=== PATIENT | male | born 1970 | race Two or more races ===

== ENCOUNTER 2024-09-28 23:02 | Inpatient (IN) | payer OTHER ==
[~2024-09-28] VITALS: Ht 182.9 cm; Wt 113.9 kg
[2024-09-28] MEDS ORDERED: ONDANSETRON HCL/PF 4 MG/2 ML VIAL ONE (23:24)
[2024-09-28] MEDS ORDERED: MECLIZINE HCL 12.5 MG TABLET ONE (23:24)
[2024-09-28] MEDS: MECLIZINE HCL 12.5 MG TABLET PO ONE (23:28)
[2024-09-28] MEDS: ONDANSETRON HCL/PF 4 MG/2 ML VIAL IVP ONE (23:28)
[2024-09-28 23:30] LABS: BASOPHILS % (AUTO) 0.9 % (0.0-2.0); EOSINOPHILS # (AUTO) 0.1 K/uL (0.0-0.7); EOSINOPHILS % (AUTO) 2.4 % (0.0-6.0); HEMATOCRIT 42 % (39-51); HEMOGLOBIN 13.7 g/dL (13.5-17.5); LYMPHOCYTES # (AUTO) 2.4 K/uL (0.8-4.8); LYMPHOCYTES % (AUTO) 44.7 % (20.0-44.0); MEAN CORPUSCULAR HEMOGLOBIN 30 PG (26.0-33.0); MEAN CORPUSCULAR HGB CONC 33 g/dl (31.0-36.0); MEAN CORPUSCULAR VOLUME 92 fL (80-96); MONOCYTES # (AUTO) 0.5 K/uL (0.1-1.30); MONOCYTES % (AUTO) 9.5 % (2.0-12.0); NEUTROPHILS # (AUTO) 2.2 K/uL (1.8-8.9); NEUTROPHILS % (AUTO) 42.5 % (43.0-81.0); PLATELET COUNT (AUTO) 194 K/uL (150-450); RED BLOOD CELL COUNT(AUTO) 4.59 MIL/uL (4.5-6.0); RED CELL DISTRIBUTION WIDTH 14.2 % (11.5-15.0); WHITE BLOOD COUNT (AUTO) 5.3 K/uL (4.3-11.0)
[2024-09-28 23:41] LABS: INR 1.03 (0.91-1.10); PARTIAL THROMBOPLASTIN TIME 29.1 SEC (24.3-34.3); PROTHROMBIN TIME 10.9 SECS (9.2-11.1)
[2024-09-28] MEDS: IV NS 0.9% 1,000 ML BAG IV ONE (23:41)
[2024-09-28 23:43] LABS: CALCIUM, SERUM 8.6 mg/dL (8.5-10.1); CARBON DIOXIDE 28 mmol/L (21-32); CHLORIDE 107 mmol/L (98-107); CREATININE 1.7 mg/dL (0.6-1.3); GLUCOSE 115 mg/dL (74-106); SODIUM SERUM 144 mmol/L (136-145); UREA NITROGEN, BLOOD 18 mg/dL (7-18)
[2024-09-28 23:49] LABS: ALANINE AMINOTRANSFERASE 42 U/L (12-78); ALBUMIN 3.8 g/dL (3.4-5.0); ALKALINE PHOSPHATASE 54 U/L (46-116); ASPARTATE AMINOTRANSFERASE 28 U/L (15-37); BILIRUBIN,DIRECT 0.1 mg/dL (0.0-0.2); BILIRUBIN,TOTAL 0.5 mg/dL (0.2-1.0); TOTAL PROTEIN, SERUM 7.6 g/dL (6.4-8.2)
[2024-09-29] MEDS ORDERED: ENOXAPARIN SODIUM 60 MG/0.6 ML DISP.SYRIN SQ ONE (02:41)
[2024-09-29] MEDS: ENOXAPARIN SODIUM 120 MG/0.8 ML DISP.SYRIN SQ ONE (02:49)
[2024-09-29] MEDS ORDERED: Z GUARD REMEDY 4 OZ OINT TP PRN (03:00)
[2024-09-29] MEDS ORDERED: MAG HYDROX/AL HYDROX/SIMETH 30 ML UDC PO PRN (03:00)
[2024-09-29] MEDS ORDERED: ACETAMINOPHEN 325 MG TABLET PO PRN (03:00)
[2024-09-29] MEDS ORDERED: HYDROCODONE/APAP 5/325MG TABLET PO PRN (03:00)
[2024-09-29] MEDS ORDERED: ONDANSETRON HCL/PF 4 MG/2 ML VIAL IVP PRN (03:00)
[2024-09-29] MEDS ORDERED: MAGNESIUM HYDROXIDE 30 ML UDC PO PRN (03:00)
[2024-09-29] MEDS ORDERED: NITROGLYCERIN 0.4 MG/TAB BOTTLE SL PRN (03:00)
[2024-09-29] MEDS ORDERED: MORPHINE SULFATE INJ 2 MG/ML DISP.SYRIN IV PRN (03:00)
[2024-09-29] MEDS: PANTOPRAZOLE 40 MG TABLET.DR PO SCH (07:58)
[2024-09-29] MEDS ORDERED: PANTOPRAZOLE 40 MG TABLET.DR PO ONE (07:58)
[2024-09-29] MEDS ORDERED: METO-357 PO (08:21)
[2024-09-29] MEDS ORDERED: HYDR50CA5 PO (08:21)
[2024-09-29 08:22] LABS: CHOLESTEROL 206 mg/dL (<200); HDL CHOLESTEROL 56 mg/dL (40-60); LDL 141 mg/dL (0-99); TRIGLYCERIDES 93 mg/dL (30-150)
[2024-09-29] MEDS ORDERED: METOPROLOL SUCCINATE 50 MG TAB.SR.24H PO SCH (09:00)
[2024-09-29] MEDS ORDERED: hydrOXYzine PAMOATE 50 MG CAPSULE PO PRN (09:00)
[2024-09-29] MEDS ORDERED: hydrOXYzine PAMOATE 25 MG CAPSULE PO PRN (09:30)
[2024-09-29 09:35] VITALS: BP 131/90; TEMP 97.5; O2SAT 98
[2024-09-29] MEDS: CLOPIDOGREL BISULFATE 75 MG TABLET PO SCH (09:42)
[2024-09-29] MEDS: METOPROLOL SUCCINATE 50 MG TAB.SR.24H PO SCH (09:44)
[2024-09-29] MEDS: ATORVASTATIN 10 MG TABLET PO SCH (09:44)
[2024-09-29] MEDS: ENOXAPARIN SODIUM 120 MG/0.8 ML DISP.SYRIN SQ SCH (10:35)
[2024-09-29] MEDS ORDERED: IV NS 0.9% 250 ML IV ONE (10:53)
[2024-09-29] MEDS ORDERED: IOHEXOL-350 100 ML VIAL IV ONE (10:53)
[2024-09-29] MEDS: NITROGLYCERIN 0.4 MG/TAB BOTTLE SL ONE (11:22)
[2024-09-29] MEDS ORDERED: METOPROLOL TARTRATE INJ 5 MG/5 ML AMPUL IVP PRN (11:30)
[2024-09-29] MEDS: IV NS 0.9% 1,000 ML IV SCH (11:44)
[2024-09-29 16:00] VITALS: BP 106/67; TEMP 97.9; O2SAT 98
[2024-09-29 20:00] VITALS: BP 101/73; TEMP 97.3; O2SAT 97
[2024-09-29] MEDS: TEMAZEPAM 15 MG CAPSULE PO PRN (22:27)
[2024-09-30] VITALS: BP 111/73; TEMP 97.7; O2SAT 98
[2024-09-30 04:00] VITALS: BP 130/90; TEMP 97.7; O2SAT 99
[2024-09-30 06:28] LABS: BASOPHILS % (AUTO) 0.5 % (0.0-2.0); EOSINOPHILS # (AUTO) 0.1 K/uL (0.0-0.7); EOSINOPHILS % (AUTO) 3.1 % (0.0-6.0); HEMATOCRIT 42 % (39-51); HEMOGLOBIN 13.7 g/dL (13.5-17.5); LYMPHOCYTES # (AUTO) 1.8 K/uL (0.8-4.8); LYMPHOCYTES % (AUTO) 48.6 % (20.0-44.0); MEAN CORPUSCULAR HEMOGLOBIN 30 PG (26.0-33.0); MEAN CORPUSCULAR HGB CONC 33 g/dl (31.0-36.0); MEAN CORPUSCULAR VOLUME 92 fL (80-96); MONOCYTES # (AUTO) 0.3 K/uL (0.1-1.30); MONOCYTES % (AUTO) 9.1 % (2.0-12.0); NEUTROPHILS # (AUTO) 1.5 K/uL (1.8-8.9); NEUTROPHILS % (AUTO) 38.7 % (43.0-81.0); PLATELET COUNT (AUTO) 204 K/uL (150-450); RED BLOOD CELL COUNT(AUTO) 4.55 MIL/uL (4.5-6.0); RED CELL DISTRIBUTION WIDTH 14.3 % (11.5-15.0); WHITE BLOOD COUNT (AUTO) 3.8 K/uL (4.3-11.0)
[2024-09-30 06:56] LABS: THYROID STIMULATING HORMONE 1.73 uIU/mL (0.358-3.74)
[2024-09-30 06:57] LABS: ALBUMIN 3.4 g/dL (3.4-5.0); BILIRUBIN,TOTAL 0.4 mg/dL (0.2-1.0); CALCIUM, SERUM 8.8 mg/dL (8.5-10.1); CREATININE 1.6 mg/dL (0.6-1.3); MAGNESIUM 2.1 mg/dL (1.8-2.4); PHOSPHORUS 4.6 mg/dL (2.5-4.9); POTASSIUM 4.2 mmol/L (3.5-5.1); TOTAL PROTEIN, SERUM 7.1 g/dL (6.4-8.2)
[2024-09-30 07:09] LABS: CREATINE KINASE, TOTAL 311 U/L (39-308)
[2024-09-30] MEDS ORDERED: METO-358 PO (10:00)
[2024-09-30] MEDS ORDERED: ATOR40TA PO (10:00)
[2024-09-30] MEDS ORDERED: DOXA4TAB19 PO (10:00)
[2024-09-30] MEDS ORDERED: CLOP75TA15 PO (10:00)
[2024-09-30 10:06] LABS: FREE PSA 0.21 ng/mL (0.00-45); PROSTATE SPECIFIC ANTIGEN SCR 0.82 ng/mL (0.00-4.00)
[2024-09-30 11:50] VITALS: BP 146/89
[2024-09-30 12:28] LABS: APPEARANCE,URINE CLEAR (CLEAR); BILIRUBIN,URINE NEGATIVE (NEGATIVE); BLOOD, URINE NEGATIVE Ery/uL (NEGATIVE); COLOR,URINE YELLOW (YELLOW); CREATININE, URINE 108.6 MG/DL (30.0-125.0); KETONES,URINE NEGATIVE (NEGATIVE); LEUKOCYTE ESTERASE ,URINE NEGATIVE (NEGATIVE); NITRITE, URINE NEGATIVE (NEGATIVE); PROTEIN,URINE NEGATIVE (NEGATIVE); UGLUCOSE NEGATIVE (NEGATIVE); UROBILINOGEN,URINE 0.2 EU/dL (0.2)
[2024-09-30 15:43] LABS: EOSINOPHIL,URINE None Seen
[2024-09-30] MEDS ORDERED: DOXAZOSIN MESYLATE (4 MG) 4 MG TABLET PO SCH (22:00)
[2024-10-01] MEDS ORDERED: ATORVASTATIN 10 MG TABLET PO SCH (09:00)
[2024-10-03 14:10] LABS: *SPE ALBUMIN 3.3 g/dL (2.9-4.4); *SPE ALPHA-1-GLOBULIN 0.2 g/dL (0.0-0.4); *SPE ALPHA-2-GLOBULIN 0.4 g/dL (0.4-1.0); *SPE BETA GLOBULIN 1.1 g/dL (0.7-1.3); *SPE GLOBULIN, TOTAL 3.2 g/dL (2.2-3.9); *SPE M-SPIKE Not Observed g/dL (Not Observed); *SPE PROTEIN TOTAL 6.5 g/dL (6.0-8.5); *SPEGAMMA GLOBULIN 1.5 g/dL (0.4-1.8)
== END 2024-09-30 12:40 | disposition home or self-care (01) | DRG 190 ==
LOC: ER 23:09 → TRANSITION 09-29 05:44 → TELE 09-29 08:54
PROVIDERS: ADMIT Internal Medicine; ATTEND Internal Medicine
DX: I21.4 Non-ST elevation (NSTEMI) myocardial infarction (principal); N17.0 Acute kidney failure with tubular necrosis; Z79.899 Other long term (current) drug therapy; Z88.6 Allergy status to analgesic agent; I12.9 Hypertensive chronic kidney disease with stage 1 through stage 4 chronic kidney disease, or unspecified chronic kidney disease; N18.9 Chronic kidney disease, unspecified; M89.8X9 Other specified disorders of bone, unspecified site; E78.5 Hyperlipidemia, unspecified; N40.0 Benign prostatic hyperplasia without lower urinary tract symptoms
CPT/HCPCS: 36415; 70450-TC; 71045-TC; 75574; 76770-TC; 80048-TC; 80053-TC; 80061-TC; 80076-TC; 82550-TC; 82553; 82570-TC; 83735-TC; 83970; 84100-TC; 84153-TC; 84154-TC; 84155; 84165; 84300-TC; 84443-TC; 84484-TC; 85025-TC; 85730-TC; 93307-TC; G0378; J1650; J2405; J7030; J7050; J8597; Q0177; Q9967

== ENCOUNTER 2024-12-19 15:02 | Emergency (ER) | payer OTHER ==
[~2024-12-19] VITALS: Ht 182.9 cm; Wt 95.3 kg
[~2024-12-19 15:02] MED LIST: ATOR40TA PO; CLOP75TA15 PO; DOXA4TAB19 PO; HYDR50CA5 PO; METO-358 PO
[2024-12-19 15:48] LABS: BASOPHILS % (AUTO) 0.8 % (0.0-2.0); EOSINOPHILS # (AUTO) 0.2 K/uL (0.0-0.7); EOSINOPHILS % (AUTO) 3.6 % (0.0-6.0); HEMATOCRIT 37 % (39-51); HEMOGLOBIN 12.3 g/dL (13.5-17.5); LYMPHOCYTES # (AUTO) 1.9 K/uL (0.8-4.8); LYMPHOCYTES % (AUTO) 43.3 % (20.0-44.0); MEAN CORPUSCULAR HEMOGLOBIN 30 PG (26.0-33.0); MEAN CORPUSCULAR HGB CONC 33 g/dl (31.0-36.0); MEAN CORPUSCULAR VOLUME 92 fL (80-96); MONOCYTES # (AUTO) 0.4 K/uL (0.1-1.30); MONOCYTES % (AUTO) 9.5 % (2.0-12.0); NEUTROPHILS # (AUTO) 1.9 K/uL (1.8-8.9); NEUTROPHILS % (AUTO) 42.8 % (43.0-81.0); PLATELET COUNT (AUTO) 146 K/uL (150-450); RED BLOOD CELL COUNT(AUTO) 4.06 MIL/uL (4.5-6.0); RED CELL DISTRIBUTION WIDTH 14.7 % (11.5-15.0); WHITE BLOOD COUNT (AUTO) 4.3 K/uL (4.3-11.0)
[2024-12-19 15:55] LABS: CALCIUM, SERUM 8.5 mg/dL (8.5-10.1); CARBON DIOXIDE 25 mmol/L (21-32); CHLORIDE 111 mmol/L (98-107); CREATININE 1.8 mg/dL (0.6-1.3); GLUCOSE 114 mg/dL (74-106); SODIUM SERUM 141 mmol/L (136-145); UREA NITROGEN, BLOOD 24 mg/dL (7-18)
[2024-12-19 16:08] LABS: NT-PRO BNP 73 pg/mL (0-125)
[2024-12-19 19:10] VITALS: BP 140/78; TEMP 98.2; O2SAT 98
== END 2024-12-19 19:19 | disposition home or self-care (01) ==
LOC: ER 15:04
DX: R07.89 Other chest pain (principal); I12.9 Hypertensive chronic kidney disease with stage 1 through stage 4 chronic kidney disease, or unspecified chronic kidney disease; I25.10 Atherosclerotic heart disease of native coronary artery without angina pectoris; N18.9 Chronic kidney disease, unspecified; Z79.02 Long term (current) use of antithrombotics/antiplatelets; Z79.899 Other long term (current) drug therapy; Z88.6 Allergy status to analgesic agent; Z60.2 Problems related to living alone
CPT/HCPCS: 36415; 71045-TC; 80048-TC; 83880; 84484-TC; 85025-TC; 85378-TC

== ENCOUNTER 2025-01-08 14:51 | Emergency (ER) | payer MEDICAID, OTHER ==
[~2025-01-08] VITALS: Ht 182.9 cm; Wt 119.0 kg
[2025-01-08 15:40] LABS: BASOPHILS % (AUTO) 1.1 % (0.0-2.0); EOSINOPHILS # (AUTO) 0.1 K/uL (0.0-0.7); EOSINOPHILS % (AUTO) 3.3 % (0.0-6.0); HEMATOCRIT 43 % (39-51); HEMOGLOBIN 13.8 g/dL (13.5-17.5); LYMPHOCYTES # (AUTO) 1.8 K/uL (0.8-4.8); MEAN CORPUSCULAR HEMOGLOBIN 30 PG (26.0-33.0); MEAN CORPUSCULAR HGB CONC 32 g/dl (31.0-36.0); MEAN CORPUSCULAR VOLUME 93 fL (80-96); MONOCYTES # (AUTO) 0.4 K/uL (0.1-1.30); MONOCYTES % (AUTO) 9.8 % (2.0-12.0); NEUTROPHILS # (AUTO) 1.6 K/uL (1.8-8.9); NEUTROPHILS % (AUTO) 39.8 % (43.0-81.0); PLATELET COUNT (AUTO) 169 K/uL (150-450); RED BLOOD CELL COUNT(AUTO) 4.57 MIL/uL (4.5-6.0); RED CELL DISTRIBUTION WIDTH 14.8 % (11.5-15.0); WHITE BLOOD COUNT (AUTO) 3.9 K/uL (4.3-11.0)
[2025-01-08 15:47] LABS: CALCIUM, SERUM 9.2 mg/dL (8.5-10.1); CARBON DIOXIDE 29 mmol/L (21-32); CHLORIDE 105 mmol/L (98-107); CREATININE 1.3 mg/dL (0.6-1.3); GLUCOSE 113 mg/dL (74-106); POTASSIUM 4.2 mmol/L (3.5-5.1); SODIUM SERUM 141 mmol/L (136-145); UREA NITROGEN, BLOOD 21 mg/dL (7-18)
[2025-01-08 16:00] LABS: ALANINE AMINOTRANSFERASE 60 U/L (12-78); ALBUMIN 3.8 g/dL (3.4-5.0); ALKALINE PHOSPHATASE 58 U/L (46-116); ASPARTATE AMINOTRANSFERASE 36 U/L (15-37); BILIRUBIN,DIRECT 0.1 mg/dL (0.0-0.2); BILIRUBIN,TOTAL 0.4 mg/dL (0.2-1.0); NT-PRO BNP 26 pg/mL (0-125); TOTAL PROTEIN, SERUM 7.8 g/dL (6.4-8.2)
[2025-01-08] MEDS ORDERED: ATOR40TA PO (17:52)
[2025-01-08] MEDS ORDERED: CLOP75TA15 PO (17:52)
[2025-01-08] MEDS ORDERED: METO-358 PO (17:52)
[2025-01-08 18:24] VITALS: BP 132/90; TEMP 98.4; O2SAT 98
== END 2025-01-08 18:25 | disposition home or self-care (01) ==
LOC: ER 14:59
DX: R07.89 Other chest pain (principal); R06.02 Shortness of breath; I10 Essential (primary) hypertension; Z79.02 Long term (current) use of antithrombotics/antiplatelets; Z79.899 Other long term (current) drug therapy; Z88.6 Allergy status to analgesic agent; Z60.2 Problems related to living alone
CPT/HCPCS: 36415; 71045-TC; 80048-TC; 80076-TC; 83880; 84484-TC; 85025-TC; 85378-TC